=== PATIENT | female | born 1950 ===

== ENCOUNTER 2022-07-27 10:40 | Inpatient (IN) ==
[2022-07-27] MEDS ORDERED: 0.9 % SODIUM CHLORIDE 1,000 ML IV ONE (11:15)
[2022-07-27 11:16] LABS: POC Calcium, Ionized 1.17 (1.16-1.32); POC Creatinine 0.8 (0.6-1.2); POC Potassium 4.1 (3.3-5.1)
[2022-07-27] MEDS ORDERED: PANTOPRAZOLE 40 MG VIAL IV ONE (11:21)
[2022-07-27] MEDS ORDERED: LACTATED RINGERS 1,000 ML IV ONE (11:22)
[2022-07-27] MEDS ORDERED: 0.9 % SODIUM CHLORIDE 250 ML IV SCH ×3 (11:30→17:11)
[2022-07-27] MEDS ORDERED: ONDANSETRON 4 MG/2 ML VIAL IV ONE (11:47)
--- NOTE | 2022-07-27 12:42 | Emergency Department Note ---
GI Bleed HPI General Chief complaint: Rectal Bleed Stated complaint: Low BP Time Seen by Provider: 07/27/22 11:21 Source: patient Mode of arrival: wheelchair Limitations: no limitations and language barrier History of Present Illness HPI Narrative: 71-year-old female who is otherwise healthy presents to the ER with complaints of melanotic stools and nausea and vomiting. She states that her symptoms started on Saturday with nausea and vomiting. She describes coffee-ground emesis. She began feeling lightheaded yesterday and then this morning had a large dark tarry stool. Presenting blood pressures were 78/55 mmHg with a heart rate of 129 bpm. She was given a liter of fluids and is responsive. Stool guaiac at the bedside is positive with dark melanic stooling. The patient is not on blood thinners. She does endorse taking 200 mg of ibuprofen nightly for the last 6 months for pain. She has no history of GI bleeding. No history of peptic ulcers. She notes that her colonoscopy was close to 10 years ago and there were normal findings. Related Data Home Medications Medication Instructions Recorded Confirmed No Known Home Meds 07/27/22 07/27/22 Allergies Allergy/AdvReac Type Severity Reaction Status Date / Time No Known Drug Allergies Allergy Verified 07/27/22 10:53 Review of Systems ROS ROS Narrative: Narrative: PFSH Narrative Patient History Narrative: Narrative: Medical/Surgical/Family History All Active Problems (Updated 07/27/22 @ 14:21 by Gunjan Dean PA-C) Melena (Acute) Upper gastrointestinal hemorrhage (Acute) Acute hypotension (Acute) Social History Smoking Status: Never smoker Exam Narrative Narrative: Narrative: General Limitations: no limitations and language barrier Course Course Course Narrative: 71-year-old female presents for probable upper GI bleed and hypotension Reevaluation(s) Reevaluation #1: Obtain basic labs, hepatic panel, type and crossmatch Give 1 L LR 80 mg IV Protonix Reevaluation #2: H&H is 8/24.9 and white blood cell count is 14,900. Neutrophils 12.61 BUN 41 Reevaluation #3: Blood pressures now 105/63 mmHg at pulse is in the low one-teens Vital Signs Vital signs: Vital Signs Temperature 98 F 07/27/22 10:51 Pulse Rate 123 H 07/27/22 10:51 Respiratory Rate 18 07/27/22 10:51 Blood Pressure 88/66 07/27/22 10:51 Pulse Oximetry (%) 100 07/27/22 10:51 Oxygen Delivery Method Room Air 07/27/22 10:51 Temperature 98 F 07/27/22 10:51 Pulse Rate 111 H 07/27/22 13:46 Respiratory Rate 19 07/27/22 13:46 Blood Pressure 105/63 07/27/22 13:46 Pulse Oximetry (%) 93 07/27/22 13:46 Oxygen Delivery Method Room Air 07/27/22 10:51 MDM MDM Narrative Medical decision making narrative: GI bleed Patient with positive stool guaiac and melanic stools in the setting of chronic NSAID use. I spoke with Dr. Quigley who will be taking the patient for endoscopy today. I spoke with Dr. Wright who has accepted the patient for admission. The patient has been typed and crossmatched for 2 units PRBCs. Lab Data 07/27/22 11:40 Labs: Lab Results 07/27/22 07/27/22 07/27/22 Range/Units 11:12 11:40 11:40 WBC 14.9 H (4.5-11.0) K/mcL RBC 2.81 L (3.59-5.38) M/mcL Hgb 8.0 L (11.2-15.7) g/dL Hct 24.9 L (34.1-44.9) % POC Hct 30.0 L (36-48) MCV 88.6 (80.0-100.0) fL MCH 28.5 (26.0-34.0) pg MCHC 32.1 (31.0-36.0) g/dL RDW 13.5 (11.5-14.5) % Plt Count 352 (140-440) K/mcL MPV 9.9 (8.8-12.5) fL Immature Gran % (Auto) 1.6 H (0.0-0.5) % Neut % (Auto) 84.4 H (38.0-78.0) % Lymph % (Auto) 9.4 L (15.5-49.0) % Bell % (Auto) 4.0 (1.0-12.0) % Eos % (Auto) 0.1 (0.0-7.0) % Baso % (Auto) 0.5 (0.0-2.0) % Lymph # (Auto) 1.40 L (1.50-4.80) K/mcL Bell # (Auto) 0.60 (0.10-0.90) K/mcL Eos # (Auto) 0.01 (0.00-0.70) K/mcL Baso # (Auto) 0.08 (0.00-0.30) K/mcL Immature Gran # 0.24 H (0.00-0.05) K/mcl Absolute Neutrophils 12.61 H (1.80-8.00) K/mcL POC Sodium 140 (133-145) POC Potassium 4.1 (3.3-5.1) POC Chloride 106 (96-108) POC Total CO2 21.0 L (22-30) POC BUN 41 H (6-20) POC Creatinine 0.8 (0.6-1.2) POC Glucose 140 H (70-105) POC WB Ioniz Calcium 1.17 (1.16-1.32) Iron (37-145) ug/dL TIBC (228-428) ug/dl Unsat Iron Binding (112-346) mcg/dL Transferrin % Sat (15-50) % Total Bilirubin 0.2 (0.1-1.0) mg/dL Direct Bilirubin < 0.2 (0-0.3) mg/dL AST 10 (<32) U/L ALT 7 (<40) U/L Alkaline Phosphatase 49 (39-117) U/L Total Protein 5.2 L (5.9-8.4) gm/dL Albumin 3.6 (3.2-5.2) gm/dL Globulin 1.6 L (2.2-3.7) gm/dL 07/27/22 Range/Units 13:53 WBC (4.5-11.0) K/mcL RBC (3.59-5.38) M/mcL Hgb (11.2-15.7) g/dL Hct (34.1-44.9) % POC Hct (36-48) MCV (80.0-100.0) fL MCH (26.0-34.0) pg MCHC (31.0-36.0) g/dL RDW (11.5-14.5) % Plt Count (140-440) K/mcL MPV (8.8-12.5) fL Immature Gran % (Auto) (0.0-0.5) % Neut % (Auto) (38.0-78.0) % Lymph % (Auto) (15.5-49.0) % Bell % (Auto) (1.0-12.0) % Eos % (Auto) (0.0-7.0) % Baso % (Auto) (0.0-2.0) % Lymph # (Auto) (1.50-4.80) K/mcL Bell # (Auto) (0.10-0.90) K/mcL Eos # (Auto) (0.00-0.70) K/mcL Baso # (Auto) (0.00-0.30) K/mcL Immature Gran # (0.00-0.05) K/mcl Absolute Neutrophils (1.80-8.00) K/mcL POC Sodium (133-145) POC Potassium (3.3-5.1) POC Chloride (96-108) POC Total CO2 (22-30) POC BUN (6-20) POC Creatinine (0.6-1.2) POC Glucose (70-105) POC WB Ioniz Calcium (1.16-1.32) Iron 70 (37-145) ug/dL TIBC 273 (228-428) ug/dl Unsat Iron Binding 203 (112-346) mcg/dL Transferrin % Sat 26 (15-50) % Total Bilirubin (0.1-1.0) mg/dL Direct Bilirubin (0-0.3) mg/dL AST (<32) U/L ALT (<40) U/L Alkaline Phosphatase (39-117) U/L Total Protein (5.9-8.4) gm/dL Albumin (3.2-5.2) gm/dL Globulin (2.2-3.7) gm/dL Discharge Plan Patient/Caregiver Discharge Instructions Pt seen by GAMMA OPERATOR/PA only: Yes Clinical Impression: Melena, Upper gastrointestinal hemorrhage, Acute hypotension Patient Disposition: Xfer As Outpt/Obs ([facility])
[2022-07-27 12:49] LABS: Basophils # (Auto) 0.08 K/mcL (0.00-0.30); Basophils % (Auto) 0.5 % (0.0-2.0); Eosinophils # (Auto) 0.01 K/mcL (0.00-0.70); Eosinophils % (Auto) 0.1 % (0.0-7.0); Hematocrit 24.9 % (34.1-44.9); Lymphocytes % (Auto) 9.4 % (15.5-49.0); Mean Cell Volume 88.6 fL (80.0-100.0); Mean Corpuscular HGB Conc 32.1 g/dL (31.0-36.0); Mean Platelet Volume 9.9 fL (8.8-12.5); Neutrophils % (Auto) 84.4 % (38.0-78.0); Platelet Count 352 K/mcL (140-440); RBC 2.81 M/mcL (3.59-5.38); Red Cell Distribution Width 13.5 % (11.5-14.5); WBC 14.9 K/mcL (4.5-11.0)
[2022-07-27 13:04] LABS: ALT/SGPT 7 U/L (<40); AST/SGOT 10 U/L (<32); Albumin 3.6 gm/dL (3.2-5.2); Alkaline Phosphatase 49 U/L (39-117); Bilirubin,Direct < 0.2 mg/dL (0-0.3); Bilirubin,Total 0.2 mg/dL (0.1-1.0); Globulin 1.6 gm/dL (2.2-3.7)
[2022-07-27] MEDS ORDERED: KETAMINE 50 MG/ML ML IV PRN (14:06)
[2022-07-27] MEDS ORDERED: MIDAZOLAM 2 MG/2 ML VIAL IV SCH (14:15)
[2022-07-27] MEDS ORDERED: PROPOFOL 200 MG/20 ML VIAL IV SCH (14:15)
--- NOTE | 2022-07-27 14:15 | Internal Med History&Physical ---
HPI History of Present Illness Patient information: Note initiated : 07/27/22 at 2:09 pm Service Date, if different from initiated Date: [] Patient: Tash Holt 71 y/o F admitted on for Low BP. Chief Complaint: [] History of present illness: Ms. Holt is a 71 year old With no significant past medical history, history of section who presented to urgent care for melena and lightheadedness. The patient was found to be anemic and sent to the emergency department where she was found to have hemoglobin of 8.0. Additionally, the patient was initially hypotensive. The patient received IV fluid in the emergency department and blood pressure improved. Hospital medicine was asked to admit the patient for probable GI bleed.The patient reports that she has been taking ibuprofen at least once a day for about 6 months for "aches and pains. She said that she recently started naproxen. She says that a couple days ago she developed melanotic stools. She denies abdominal discomfort however endorses feeling lightheaded and more short of breath recently. Patient lives in [place] and is in this area visiting family. Her father from liver cirrhosis which she says was secondary to alcohol use. She endorses seasonal al lergies for which she takes Zyrtec. Review of systems Constitutional: Positive for fatigue Eyes: no vision changes or pain Cardiovascular: no chest pain, no palpitations Respiratory: Positive for exertional dyspnea Gastrointestinal: Positive for melanotic stools no abdominal pain, no nausea, vomiting, or diarrhea Genitourinary: no dysuria or difficulty voiding Musculoskeletal: no arthralgia or myalgia Integumentary: no skin lesion or wound Neurological: no focal weakness or numbness Psychiatric: no anxiety or depression Physical exam Head: Atraumatic, normal inspection. Eyes: normal appearance, no scleral icterus. Neck: full ROM Respiratory: no respiratory distress. Cardiovascular: normal rate and rhythm, S1, S2. GI/Abdominal: soft, nontender, no guarding. Extremities: full range of motion, nontender. Neurological: CN II-XII intact, intact motor, intact sensation. Psychiatric: normal mood. Skin: warm, normal color PFSH PFSH Social History smoking status: Never smoker MEDS/ALLERGIES Home Medications and Allergies Home Medications Medication Instructions Recorded Confirmed Type No Known Home Meds 07/27/22 07/27/22 History Allergies Allergy/AdvReac Type Severity Reaction Status Date / Time No Known Drug Allergies Allergy Verified 07/27/22 10:53 EXAM Constitutional Vitals: Temp Pulse Resp BP Pulse Ox O2 Del Method 98 F 111 H 19 105/63 93 Room Air 07/27/22 10:51 07/27/22 13:46 07/27/22 13:46 07/27/22 13:46 07/27/22 13:46 07/27/22 10:51 DATA Data Completed and Pending Labs: Labs from last 24 hours 07/27/22 07/27/22 07/27/22 13:53 11:40 11:40 WBC 14.9 H RBC 2.81 L Hgb 8.0 L Hct 24.9 L POC Hct MCV 88.6 MCH 28.5 MCHC 32.1 RDW 13.5 Plt Count 352 MPV 9.9 Immature Gran % (Auto) 1.6 H Neut % (Auto) 84.4 H Lymph % (Auto) 9.4 L [place] % (Auto) 4.0 Eos % (Auto) 0.1 Baso % (Auto) 0.5 Lymph # (Auto) 1.40 L [place] # (Auto) 0.60 Eos # (Auto) 0.01 Baso # (Auto) 0.08 Immature Gran # 0.24 H Absolute Neutrophils 12.61 H POC Sodium POC Potassium POC Chloride POC Total CO2 POC BUN POC Creatinine POC Glucose POC WB Ioniz Calcium Iron Pending TIBC Pending Unsat Iron Binding Pending Transferrin % Sat Pending Ferritin Pending Total Bilirubin 0.2 Direct Bilirubin < 0.2 AST 10 ALT 7 Alkaline Phosphatase 49 Total Protein 5.2 L Albumin 3.6 Globulin 1.6 L 07/27/22 11:12 WBC RBC Hgb Hct POC Hct 30.0 L MCV MCH MCHC RDW Plt Count MPV Immature Gran % (Auto) Neut % (Auto) Lymph % (Auto) [place] % (Auto) Eos % (Auto) Baso % (Auto) Lymph # (Auto) [place] # (Auto) Eos # (Auto) Baso # (Auto) Immature Gran # Absolute Neutrophils POC Sodium 140 POC Potassium 4.1 POC Chloride 106 POC Total CO2 21.0 L POC BUN 41 H POC Creatinine 0.8 POC Glucose 140 H POC WB Ioniz Calcium 1.17 Iron TIBC Unsat Iron Binding Transferrin % Sat Ferritin Total Bilirubin Direct Bilirubin AST ALT Alkaline Phosphatase Total Protein Albumin Globulin A/P Narrative A/P Narrative: Assessment: 71-year-old female with an approximately 6-month history of daily NSAID use admitted for a acute anemia secondary to probable upper GI bleed. #Acute anemia likely secondary to upper GI bleed #History of NSAID use #Seasonal allergies Plan -Protonix infusion for now. -Follow hemoglobin, transfuse RBC for hemoglobin less than 7. -Iron studies. -H. pylori stool antigen. -IV fluid. -GI consult for endoscopic work-up. -N.p.o. Time Spent With Patient Time: Total time spent is greater than 50% in coordination of care (as documented) at patient's floor/unit and/or counseling patient:
[2022-07-27] MEDS ORDERED: MIDAZOLAM 2 MG/2 ML VIAL IV ONE (14:21)
[2022-07-27] MEDS ORDERED: MIDAZOLAM 2 MG/2 ML VIAL ONE (14:31)
[2022-07-27 14:38] LABS: Ferritin 113.8 ng/mL (30.0-400.0)
[2022-07-27] MEDS ORDERED: EPINEPHrine 1 MG/ML VIAL IJ ONE (14:55)
[2022-07-27 15:56] LABS: Basophils # (Auto) 0.06 K/mcL (0.00-0.30); Basophils % (Auto) 0.4 % (0.0-2.0); Eosinophils # (Auto) 0 K/mcL (0.00-0.70); Eosinophils % (Auto) 0 % (0.0-7.0); Hematocrit 20.8 % (34.1-44.9); Hemoglobin 6.8 g/dL (11.2-15.7); Mean Corpuscular HGB Conc 32.7 g/dL (31.0-36.0); Mean Platelet Volume 9.6 fL (8.8-12.5); Monocytes # (Auto) 0.56 K/mcL (0.10-0.90); Monocytes % (Auto) 3.8 % (1.0-12.0); Neutrophils % (Auto) 79.4 % (38.0-78.0); Platelet Count 310 K/mcL (140-440); RBC 2.39 M/mcL (3.59-5.38); Red Cell Distribution Width 13.4 % (11.5-14.5); WBC 14.6 K/mcL (4.5-11.0)
[2022-07-27] MEDS ORDERED: ONDANSETRON 4 MG/2 ML VIAL IV PRN (17:11)
[2022-07-27] MEDS ORDERED: 0.9 % SODIUM CHLORIDE 500 ML IV ONE (17:24)
[2022-07-27] MEDS: PANTOPRAZOLE 80 MG in 0.9 % SODIUM CHLORIDE 100 ML IV SCH (18:25)
[2022-07-27] MEDS: NOREPINEPHRINE BITARTRATE 8 MG in 0.9 % SODIUM CHLORIDE 242 ML IV SCH (18:54)
[2022-07-27] MEDS: 0.9 % SODIUM CHLORIDE 1,000 ML IV SCH (19:46)
[2022-07-27] MEDS: 0.9 % SODIUM CHLORIDE 250 ML IV SCH (20:37)
[2022-07-27] MEDS: 0.9 % SODIUM CHLORIDE 10 ML SYRINGE IV SCH (20:37)
[2022-07-28] MEDS ORDERED: PANTOPRAZOLE 40 MG VIAL IV ONE (01:57)
[2022-07-28] MEDS: PANTOPRAZOLE 80 MG in 0.9 % SODIUM CHLORIDE 100 ML IV SCH ×3 (02:30→23:21)
[2022-07-28] MEDS: 0.9 % SODIUM CHLORIDE 250 ML IV SCH ×2 (06:17→19:04)
[2022-07-28] MEDS: 0.9 % SODIUM CHLORIDE 10 ML SYRINGE IV SCH ×3 (06:18→23:20)
[2022-07-28 06:42] LABS: Basophils # (Auto) 0.08 K/mcL (0.00-0.30); Basophils % (Auto) 0.7 % (0.0-2.0); Eosinophils # (Auto) 0.09 K/mcL (0.00-0.70); Eosinophils % (Auto) 0.8 % (0.0-7.0); Hematocrit 24.5 % (34.1-44.9); Hemoglobin 8.1 g/dL (11.2-15.7); Lymphocytes # (Auto) 1.97 K/mcL (1.50-4.80); Lymphocytes % (Auto) 16.8 % (15.5-49.0); Mean Cell Volume 87.8 fL (80.0-100.0); Mean Corpuscular HGB Conc 33.1 g/dL (31.0-36.0); Mean Platelet Volume 9.8 fL (8.8-12.5); Monocytes % (Auto) 6.8 % (1.0-12.0); Neutrophils % (Auto) 73.5 % (38.0-78.0); Platelet Count 219 K/mcL (140-440); RBC 2.79 M/mcL (3.59-5.38); Red Cell Distribution Width 13.9 % (11.5-14.5); WBC 11.7 K/mcL (4.5-11.0)
[2022-07-28] MEDS: NOREPINEPHRINE BITARTRATE 8 MG in 0.9 % SODIUM CHLORIDE 242 ML IV SCH (09:05)
--- NOTE | 2022-07-28 09:30 | Internal Med Progress Note ---
SUBJECTIVE Subjective Patient information: Note initiated : 07/28/22 at 9:27 am Service Date, if different from initiated Date: [] Patient: Tash Holt 71 y/o F admitted on 07/27/22 for Low BP. Chief Complaint: [] Interval history: Ms. Holt is a 71 year old With no significant past medical history, history of section who presented to urgent care for melena and lightheadedness. The patient was found to be anemic and sent to the emergency department where she was found to have hemoglobin of 8.0. Additionally, the patient was in itially hypotensive. The patient received IV fluid in the emergency department and blood pressure improved. Hospital medicine was asked to admit the patient for probable GI bleed.The patient reports that she has been taking ibuprofen at least once a day for about 6 months for "aches and pains. She said that she recently started naproxen. She says that a couple days ago she developed melanotic stools. She denies abdominal discomfort however endorses feeling lightheaded and more short of breath recently. Patient lives in [place] and is in this area visiting family. Her father from liver cirrhosis which she says was secondary to alcohol use. She endorses seasonal allergies for which she takes Zyrtec. 07/28 EGD shortly after admission revealed a duodenal ulcer treated with an epinephrine injection. Patient's hemoglobin trended down to 6.8, she received 2 units of red blood cells. This morning, the patient's hemoglobin is 8.1. Iron studies are not suggestive of iron deficiency. Overall she feels much better. She continues on a Protonix infusion, will continue to trend hemoglobin and monitor the patient to ensure no rebleeding. Physical exam Head: Atraumatic, normal inspection. Eyes: normal appearance, no scleral icterus. Neck: full ROM Respiratory: no respiratory distress. Cardiovascular: normal rate and rhythm, S1, S2. GI/Abdominal: soft, nontender, no guarding. Extremities: full range of motion, nontender. Neurological: CN II-XII intact, intact motor, intact sensation. Psychiatric: normal mood. Skin: warm, normal color Constitutional Vitals: Vital Signs Temp Pulse Resp BP Pulse Ox O2 Del Method 99.2 F H 91 H 19 119/64 96 Room Air 07/28/22 08:01 07/28/22 08:01 07/28/22 08:01 07/28/22 08:01 07/28/22 08:01 07/27/22 20:00 Period Temp Pulse Resp BP Sys/Lara Pulse Ox O2 Del Method O2 Flow Rate Last 24 Hr 97.3 F-99.8 F 90-125 0-29 71-190/31-143 92-100 Room Air-Room Air Intake and Output 07/27/22 07/28/22 07/28/22 19:59 03:59 11:59 Intake Total 3172 81 Output Total 800 425 Balance 3173 -719 -425 Weight 59.591 kg 59.693 kg Intake & Output: Intake & Output 07/27/22 07/28/22 07/28/22 19:59 03:59 11:59 Intake Total 3172 81 Output Total 800 425 Balance 6904 -719 -425 Weight 59.591 kg 59.693 kg Intake: IV 2522 81 Sodium Chloride 0.9% 1,000 ml @ 1000 Wide Open IV [facility] Rx#: [id number] Sodium Chloride 0.9% 250 ml @ 22 20 mls/hr IV .[id number] [facility] Rx#: [id number] Sodium Chloride 0.9% 500 ml @ 500 Wide Open IV [facility] Rx#: [id number] Lactated Ringers 1,000 ml @ 1000 Wide Open IV [facility] Rx#: [id number] Protonix 80 mg In Sodium 81 Chloride 0.9% 100 ml @ 8 MG/HR 10 mls/hr IV Q10H [facility] Rx#: [id number] Blood Product 650 Output: Void Amount 800 425 Other: Urine Appearance Clear Clear Urine Color Bright Yellow Yellow Stool Color Black OBJ DATA Labs 07/28/22 05:06 Labs: Abnormal Lab Results 07/28/22 07/27/22 07/27/22 05:06 20:29 15:15 WBC 11.7 H 14.6 H RBC 2.79 L 2.39 L Hgb 8.1 L 8.9 L 6.8 L* Hct 24.5 L 20.8 L* POC Hct Immature Gran % (Auto) 1.4 H 1.4 H Neut % (Auto) 79.4 H Lymph % (Auto) 15.0 L Lymph # (Auto) Immature Gran # 0.16 H 0.20 H Absolute Neutrophils 8.61 H 11.62 H POC Total CO2 POC BUN POC Glucose Total Protein Globulin 07/27/22 07/27/22 07/27/22 11:40 11:40 11:12 WBC 14.9 H RBC 2.81 L Hgb 8.0 L Hct 24.9 L POC Hct 30.0 L Immature Gran % (Auto) 1.6 H Neut % (Auto) 84.4 H Lymph % (Auto) 9.4 L Lymph # (Auto) 1.40 L Immature Gran # 0.24 H Absolute Neutrophils 12.61 H POC Total CO2 21.0 L POC BUN 41 H POC Glucose 140 H Total Protein 5.2 L Globulin 1.6 L Meds: Medications Sodium Chloride (Sodium Chloride 0.9%) 1,000 mls @ 75 mls/hr IV .[id number] [facility] Last Admin: 07/27/22 19:46 Dose: 75 mls/hr Norepinephrine Bitartrate 8 mg (/ Sodium Chloride) 250 mls @ 18.75 mls/hr IV Q14H [facility]; Protocol Last Admin: 07/28/22 09:05 Dose: Not Given Pantoprazole Sodium 80 mg/ (Sodium Chloride) 100 mls @ 10 mls/hr IV Q10H [facility] Last Admin: 07/28/22 02:30 Dose: 8 mg/hr, 10 mls/hr Sodium Chloride (Sodium Chloride 0.9%) 250 mls @ 20 mls/hr IV .[id number] [facility] Last Admin: 07/28/22 06:17 Dose: Not Given Ondansetron HCl (Ondansetron 4 Mg/2 Ml Vial) 4 mg IV Q6HP PRN PRN Reason: Nausea And Vomiting Sodium Chloride (0.9 % Sodium Chloride 10 Ml Syringe) 10 ml IV Q8 [facility] Last Admin: 07/28/22 06:18 Dose: 10 ml A/P Narrative A/P Narrative: Assessment: 71-year-old female with an approximately 6-month history of daily NSAID use admitted for a acute anemia secondary to a upper GI due to a duodenal ulcer. #Acute anemia secondary to upper GI bleed secondary to a duodenal ulcer #History of NSAID use #Seasonal allergies Plan -Continue Protonix infusion for now. -Follow hemoglobin, transfuse RBC for hemoglobin less than 7 or symptomatic anemia. -H. pylori stool antigen. -Discontinue IV fluid. -Resume home Zyrtec. -GI was consulted, performed EGD on 07/27/2022. -Advance to clear liquid diet. -Disposition: Continue inpatient PCU for monitoring for rebleeding. If no rebleeding then plan to discharge to home on oral PPI, possibly tomorrow. Time Spent With Patient Time: Total time spent is greater than 50% in coordination of care (as documented) at patient's floor/unit and/or counseling patient: QUALITY VTE Deep Vein Thrombosis/Pulmonary Embolism Present on Admission: No
[2022-07-28] MEDS: 0.9 % SODIUM CHLORIDE 1,000 ML IV SCH (09:45)
[2022-07-29] MEDS: 0.9 % SODIUM CHLORIDE 250 ML IV SCH (06:37)
[2022-07-29] MEDS: 0.9 % SODIUM CHLORIDE 10 ML SYRINGE IV SCH (06:37)
[2022-07-29 08:41] LABS: Hematocrit 24.6 % (34.1-44.9); Hemoglobin 8.1 g/dL (11.2-15.7)
[2022-07-29] MEDS ORDERED: CETIRIZINE 10 MG TABLET PO SCH (09:00)
[2022-07-29] MEDS: PANTOPRAZOLE 80 MG in 0.9 % SODIUM CHLORIDE 100 ML IV SCH (09:16)
[2022-07-29] MEDS ORDERED: OMEPRAZOLE 20 MG CAPSULE PO SCH (09:20)
--- NOTE | 2022-07-29 09:27 | Discharge Summary ---
Discharge Provider Provider IMPORTANT FOLLOW-UP INFORMATION FOR PCP: Patient information: Note initiated : 07/29/22 at 9:24 am Service Date, if different from initiated Date: [] Patient: Tash Holt 71 y/o F admitted on 07/27/22 for Low BP. Chief Complaint: [] Date of admission: 07/27/22 16:50 Discharge date: 07/29/22 Primary care physician: Unknown Unknown Consults: 07/27/22 Consult to Physician [CONS] Stat Comment: Consulting Provider: López Wright Reason For Exam: Physician to Consult Consult to Physician [CONS] Stat Comment: Consulting Provider: Lyle Mayes Reason For Exam: Physician to Consult COURSE Hospital Course Hospital course: Ms. Holt is a 71 year old With no significant past medical history, history of section who presented to urgent care for melena and lightheadedness. The patient was found to be anemic and sent to the emergency department where she was found to have hemoglobin of 8.0. Additionally, the patient was initiall y hypotensive. The patient received IV fluid in the emergency department and blood pressure improved. Hospital medicine was asked to admit the patient for probable GI bleed.The patient reports that she has been taking ibuprofen at least once a day for about 6 months for "aches and pains. She said that she recently started naproxen. She says that a couple days ago she developed melanotic stools. She denies abdominal discomfort however endorses feeling lightheaded and more short of breath recently. Patient lives in [place] and is in this area visiting family. Her father from liver cirrhosis which she says was secondary to alcohol use. She endorses seasonal allergies for which she takes Zyrtec. 07/28 EGD shortly after admission revealed a duodenal ulcer treated with an epinep hrine injection. Patient's hemoglobin trended down to 6.8, she received 2 units of red blood cells. This morning, the patient's hemoglobin is 8.1. Iron studies are not suggestive of iron deficiency. Overall she feels much better. She continues on a Protonix infusion, will continue to trend hemoglobin and monitor the patient to ensure no rebleeding. 07/29 Vital stable overnight, hemoglobin 8.1 this morning. The patient has not had a bowel movement yet since admission therefore the Helicobacter pylori stool antigen test was not obtained. Iron studies are not consistent with iron deficiency. The likelihood of a ulcer rebleeding event is unlikely at this point. The patient was transition to Prilosec 40 mg twice a day which I will recommend she takes for 4 weeks followed by Prilosec once a day until further dose change by her primary care provider. The patient is discharged to home with her family. She will follow-up with her primary care provider in her [facility]. Physical exam Head: Atraumatic, normal inspection. Eyes: normal appearance, no scleral icterus. Neck: full ROM Respiratory: no respiratory distress. Cardiovascular: normal rate and rhythm, S1, S2. GI/Abdominal: soft, nontender, no guarding. Extremities: full range of motion, nontender. Neurological: CN II-XII intact, intact motor, intact sensation. Psychiatric: normal mood. Skin: warm, normal color Discharge diagnosis: Upper GI bleed secondary to duodenal ulcer Secondary discharge diagnosis: Acute blood loss anemia Time Spent with Patient Time attestation: Total time spent providing and/or coordinating discharge services: Time spent: Less than 30 minutes EXAM Constitutional Vitals: Temp Pulse Resp BP Pulse Ox O2 Del Method 99 F 84 14 101/61 94 Room Air 07/29/22 07:07 07/29/22 07:07 07/29/22 07:07 07/29/22 07:07 07/29/22 07:07 07/29/22 07:07 Discharge Data Data Completed and Pending Labs on day of discharge: Labs from last 24 hours 07/29/22 07/28/22 07/28/22 07:42 19:53 11:49 Hgb 8.1 L 8.1 L 8.2 L Hct 24.6 L Discharge Plan Patient/Caregiver Discharge Instructions Activity: increase activity as tolerated Diet: Regular Diet Prescriptions: New omeprazole 40 mg capsule,delayed release(DR/EC) 40 mg PO BID 28 Days Qty: 56 2RF Rx Instructions: Take Prilosec 40 mg daily twice a day for 4 weeks followed by Prilosec 40 mg once a day until further dose changes by your primary care provider. Continued cetirizine [Zyrtec] 10 mg Tablet 10 mg PO QDAY echinacea 125 mg Tablet 125 mg PO TID Rx Instructions: administer with meals Follow Up Plan Follow up with: Unknown,Unknown [Primary Care Provider] - Patient Disposition: Home, Self-Care Overall status at discharge: patient is progressing back to baseline Discharge Orders: Discharge Order (Routine); Ordered 07/29/22 Ordered By: López WADE VTE Deep Vein Thrombosis/Pulmonary Embolism Present on Admission: No
--- NOTE | 2022-07-30 09:55 | EGD Procedure Note ---
EGD Procedure Notes Procedure Information Patient information: Note initiated : 07/30/22 at 9:53 am Patient: Tash Holt 71 y/o F admitted on 07/27/22 for Low BP. Date of Procedure: 07/27/22 Pre-Op Diagnosis: Melena. Post-Op Diagnosis: Duodenal ulcer with upper GI bleed. Procedure: EGD with control of bleed Procedure Narrative: The procedure, alternatives and risks were discussed with the patient and the patient's questions were answered. With endoscopist-administered intravenous sedation, the Olympus video endoscope was introduced into the esophagus. The esophagus, stomach, and duodenum were examined sequentially. There is no esophagitis nor hiatal hernia. A small superficial postbulbar ulcer was seen. It was difficult to directly visualize due to its position. The base was injected and cauterized. The gastric mucosa, antrum, pyloric ring and duodenum were otherwise normal. The scope was withdrawn. Grafts/Implants: No Anesthesia: conscious sedation Findings: Duodenal ulcer with upper GI bleed. Complications: none Surgeon: Lyle Mayes Estimated blood loss: 0 Specimens Removed/Pathology: none sent Condition: stable Disposition: same day Assessment: Duodenal ulcer with upper GI bleed.
== END 2022-07-29 10:40 | disposition home or self-care (01) | DRG 378 ==
LOC: ED 10:40 → SUR 14:14 → ICU 16:50 → MEDSUR 07-28 17:58
PROVIDERS: ADMIT Internal Medicine; ATTEND Internal Medicine